=== PATIENT | female | born 1945 | race Asian ===

== ENCOUNTER 2021-07-17 17:52 | Emergency (ER) | payer SELFPAY ==
[~2021-07-17] VITALS: Ht 167.6 cm; Wt 59.0 kg
[2021-07-17] MEDS ORDERED: OXYCODONE HCL/ACETAMINOPHEN 5/325MG TABLET PO ONE (18:30)
[2021-07-17] MEDS ORDERED: ONDANSETRON HCL 4MG/2ML INJ IV ONE (19:45)
[2021-07-17] MEDS ORDERED: PROPOFOL 200MG/20ML VIAL IV ONE (19:45)
[2021-07-17] MEDS ORDERED: KETAMINE HCL 50 MG/ML 10ML IV ONE (19:45)
[2021-07-17] MEDS ORDERED: IBUP-2028 PO (21:41)
[2021-07-17 22:18] VITALS: BP 127/57
== END 2021-07-17 22:18 | disposition home or self-care (01) ==
LOC: ER 17:52
DX: S53.104A Unspecified dislocation of right ulnohumeral joint, initial encounter (principal); I10 Essential (primary) hypertension; Z88.8 Allergy status to other drugs, medicaments and biological substances; W01.0XXA Fall on same level from slipping, tripping and stumbling without subsequent striking against object, initial encounter; Y93.89 Activity, other specified; Y92.39 Other specified sports and athletic area as the place of occurrence of the external cause
CPT/HCPCS: 24600; 73060; 73070; 96374; 99152; 99285; J2405; J2704; J3490